=== PATIENT | female | born 1985 | race Caucasian/White ===

== ENCOUNTER 2025-07-21 12:20 | Outpatient (AMB) | payer OTHER, SELFPAY ==
--- NOTE | 2025-07-21 12:27 | A.OFFPC_ITS ---
Vital Signs 07/21/25 12:33 07/21/25 12:46 Height 5 ft 3 in Weight 133 lb 4 oz BMI 23.6 BP 159/92 H 136/88 Blood Pressure Location Lt brachial Lt brachial Position Sitting Sitting Respiration 16 Pulse 96 Pulse Source Pulse Oximeter Temp 99.5 F Temp Source Oral Pulse Oximetry (%) 96 Oxygen Delivery Method Room Air Intake Visit Reasons: betty from dr herring Intake Note: patient here for new patient visit, BETTY from Dr. Herring Guide Tour Required: No Is last menstrual period known: Yes Last menstrual period: 06/25/25 Post menopausal: No Patient : No Allergies No Known Allergies Allergy (Verified 07/21/25 12:39) Medication List - Last Reconciled 07/21/25 by Quentin Romo CNP No Known Home Meds Tobacco use date assessed: 07/21/25 Dental Screening Dental Screen Date: 07/21/25 Did you have a dental visit in the last 12 months?: No Did you have a dental problem in the last 6 months where you did not have access to dental care?: No Was dental information given to patient?: Yes HPI HPI Comments History of Present Illness Details 40-year-old female presents to [facility] care. She is not on prescription medication. Prior PCP? - [facility] Last office visit/CPE/labs - 5 years Acute issue(s) - Reports intermittent productive cough with white phlegm for the past 2 weeks. Denies difficulty breathing, chest discomfort, fever, chills, body aches. She takes Claritin D with improvement, however, the medication makes makes her tired. Past Medical History - HTN, cerebellar tumor, myopia, allergi es Surgical History - None Family History - Mom: HTN - MGM: HTN - MGF: Cardiovascular disease Social History - Nonsmoker. History of vaping, quit 1.5 months ago. Drinks 2-3 shots of vodka twice weekly. Denies recreational drug use - She generally eats healthy but likes s alty and processed foods. Walks regularly. Generally sleep well but sometimes have trouble falling asleep, denies snoring Health maintenance - Last eye exam was in 01/2024 at [facility] . Referred to Ophthalmology for routine eye exam - Last dental visit was over a year ago; encouraged to schedule an appointment with his dentist for routine dental care - Last tetanus vaccine was more than 10 years ago; received Tdap vaccine today - Has not been vaccinated for the flu ; plans on getting the vaccine next month - Last pap smear test was a year ago wit [facility]: Normal. Record not currently available - She has never had a mammogram. Mammogr am ordered Specialists - None [facility] Medical History (Updated 07/21/25 @ 13:11 by Quentin Romo CNP) High blood pressure Cerebellar tumor Family History (Updated 07/21/25 @ 12:41 by Elvi Sullivan MA) Mother High blood pressure Maternal Grandmother High blood pressure Maternal Grandfather Cardiovascular disease Social History (Updated 07/21/25 @ 12:33 by Elvi Sullivan MA) Housing: House Patient Tobacco Use Status: Never used Tobacco e-Cigarette/Vaping Use: Never Used Second Hand Smoke Exposure: No service: No Current occupational status: employed Current occupation: apraisal section 8 property manager Current occupational exposures/hazards: No Cognitive needs: No Hearing needs: No Vision needs: Yes Female Reproductive History Menstrual Date of last menstrual period: 06/25/25 Questionnaire PHQ-9 Over the last 2 weeks, how often have you been bothered by any of the following problems? 1. Little interest or pleasure in doing things: not at all 2. Feeling down, depressed, or hopeless: not at all 3. Trouble falling or staying asleep, or sleeping too much: not at all 4. Feeling tired or having little energy: several days 5. Poor appetite or overeating: not at all 6. Feeling bad about yourself - or that you are a failure or have let yourself or your family down: not at all 7. Trouble concentrating on things, such as reading the newspaper or watching television: not at all 8. Moving or speaking so slowly that other people could have noticed. Or the opposite - being so fidgety or restless that you have been moving around a lot more than usual: not at all 9. Thoughts that you would be better off or of hurting yourself in some way: not at all Total score: 1 Depression Screening Interpretation: Negative Depression Screening Done: Yes 29611 - PHQ-9 Billing: Yes Source: Developed by Drs. Alin Ac, Brie Pompa, Nico Sheriff and colleagues, with an educational court from [employer]. Thrive Questionnaire Date Thrive assessed: 07/21/25 I am a: Patient What is your living situation today?: I have a steady place to live Within the past 12 months, did the food you bought not last and you didn't have the money to get more?: Never true Within the past 12 months, did you worry whether your food would run out before you got money to buy more?: Never true Do you have trouble paying for medicines?: No Do you have trouble getting transportation to medical appointments?: No Do you have trouble paying your heating and electricity bill?: No Do you have trouble taking care of your child, family member or friend?: No Do you have trouble with day-to-day activities such as bathing, preparing meals, shopping, managing finances, etc.?: No Are you currently unemployed and looking for a job?: No Are you interested in more education?: No Please select the resources that you would like help with: None Currently or been in a relationship where the following occur: No concerns reported THRIVE Score: 0 AUDIT C Alcohol Use Questionnaire (AUDIT-C) 1. How often do you have a drink containing alcohol?: 2-3 times a week 2. How many drinks containing alcohol do you have on a typical day when you are drinking?: 1 or 2 3. How often do you have six or more drinks on one occasion?: Monthly Total Score: 5 Score Reviewed/Action Taken: Yes ARSALAN-7 AMB Questionnaire ARSALAN-7 Date ARSALAN - 7 assessed: 07/21/25 Feeling nervous, anxious, or on edge: 0 = Not at all Not being able to stop or control worryin = Not at all Worrying too much about different things: 0 = Not at all Trouble relaxin = Not at all Being so restless that it is hard to sit still: 0 = Not at all Becoming easily annoyed or irritable: 0 = Not at all Feeling afraid as if something awful might happen: 0 = Not at all Total ARSALAN-7 score (0-4 normal; 5-9 mild; 10-14 moderate; 15-21 severe): 0 Source: Developed by Drs. Alin Ac, Brie Pompa, Nico Sheriff and colleagues, with an educational court from [employer]. ARSALAN-7 Assessment Billing ARSALAN-7 Assessment Tool: ARSALAN-7 Assessment 77305 Review of Systems Const Details: Denies chills, Denies fatigue, Denies fever(s), Denies headache(s) and Denies weakness HEENT Denies change in vision, Denies dizziness, Denies headache(s), Denies hearing loss, Denies nasal congestion, Denies sinus pain, Denies sinus pressure and Denies sore throat Card Denies chest pain, Denies lightheadedness, Denies dyspnea and Denies other (palpitations) Resp Reports cough, Denies dyspnea and Denies wheezing GI Denies abdominal pain, Denies melena, Denies hematochezia, Denies change in bowel habits, Denies dyspepsia and Denies nausea Denies hematuria and Denies dysuria Musc Denies abnormal gait, Denies myalgias, Denies arthralgias, Denies numbness and Denies tingling Skin/Breast Denies rash, Denies unusual bruising and Denies wounds Neuro Denies abnormal gait, Denies dizziness, Denies headache(s), Denies memory loss, Denies numbness, Denies Sensory deficit (Neuro), Denies tingling and Denies weakness Psych Denies anxiety, Denies depression and Denies memory loss Endo Denies cold intolerance, Denies fatigue, Denies heat intolerance, Denies polydipsia and Denies polyuria Haim/Lymph Denies easy bleeding and Denies easy bruising Aller/Immun Denies wheezing Physical exam (Primary Care) Vital Signs: Last Vital Signs Temp 99.5 F 07/21/25 12:33 Pulse 96 07/21/25 12:33 Resp 16 07/21/25 12:33 BP 136/88 07/21/25 12:46 Pulse Ox 96 07/21/25 12:33 Oxygen Delivery Method Room Air 07/21/25 12:33 BMI result Body Mass Index 23.6 Tobacco/Smoking Status: Tobacco use Status Tobacco use date assessed 07/21/25 07/21/25 12:39 Patient Tobacco Use Status Never used Tobacco 07/21/25 12:39 e-Cigarette/Vaping Use Never Used 07/21/25 12:39 PHQ-9: PHQ-9 Score PHQ-9: Total score 1 07/21/25 13:20 Depression Screening Interpretation: Negative Thrive Assessment: Date of Thrive Assessment Date Thrive assessed 07/21/25 07/21/25 12:29 Currently or been in a relationship where the following occur: No concerns reported Const Other: General: no acute distress, well developed, alert and awake Nutritional Appearance: well nourished Orientation/consciousness: patient oriented x3 [facility] Head: Yes normocephalic and Yes atraumatic Ears: hearing grossly normal bilaterally and TM's normal bilaterally General nose exam: Normal external nose present and Normal nares present Mouth: Normal oral and palatal mucosa present and moist mucous membranes Teeth and gingiva: dentition normal Throat: Yes oropharynx normal Eyes Pupils: Equal, round and reactive pupils present and Pupil accommodation reflex normal EOM: EOMs intact bilaterally Neck Neck: Yes normal visual inspection, Yes no lymphadenopathy and Yes trachea midline Thyroid: Thyroid normal Carotids: no bruits Lymphatic: no lymphadenopathy noted Chest Chest palpation & inspection: normal inspection of the chest Resp Effort & Inspection: normal respiratory effort Auscultation: clear to auscultation bilaterally Cardio Rate: regular rate Rhythm: regular rhythm Heart sounds: S1 normal heart sound present, S2 normal heart sound present, no gallops, no murmurs and no rubs Bruits: no abdominal aortic bruits and no carotid bruits GI Palpation (GI): No Abdominal aortic bruit present, Soft to palpation, nontender, No hepatosplenomegaly present and No Rebound tenderness present Auscultation: normal bowel sounds General: Yes no CVA tenderness Back/Spine/Pelvis Back: no CVA tenderness Cervical Spine: cervical ROM normal and No Cervical spine tenderness Thoracic/Lumbar Spine: thoraco-lumbar ROM normal, No pain with thoraco-lumbar ROM, No thoracic spinal tenderness and No lumbar spinal tenderness Skin General: warm and dry. Normal skin color. Normal skin turgor Lesions: no lesions Rashes: no rashes Trauma: no lacerations or abrasions Wounds: no wounds Nails: normal Neuro General: patient oriented x3, gait normal and CN's II-XI intact bilaterally Cranial nerves: Yes Equal, round and reactive pupils present Cognition (Neuro): normal cognition Gait exam (Neuro): Normal gait present Motor exam (neuro): 5/5 motor strength present throughout Sensory Exam: No Sensory deficit (Neuro) Deep tendon reflexes (DTR's): Right patellar reflex intensity grade: 2+ and Left patellar reflex intensity grade: 2+ Extrem General: Yes normal to inspection, No edema and No calf tenderness Psych Appearance: grossly normal Affect: normal affect Attitude: cooperative Thought process: Normal thought process present Immunizations Boostrix Tdap 2.5 Lf unit-8 mcg-5 Lf/0.5 mL intramuscular syringe Performing Provider: Quentin Romo CNP Performing Location: [facility] Administered by: Kyle Oewns RN on 07/21/25 13:20 Dose Route Admin Location Dispensed Lot Number Expiration Date [facility] Finisher Hot Strip 0.5 mL IM Left Deltoid 0.5 mL [id number] 09/10/27 [id number] [employer] Total Dispensed Waste 0.5 mL 0 % VIS Given Date VIS Provided VIS Publication Date 07/21/25 Single Vaccine 21 Eligibility Eligibility Date Funding Source Not [facility] Eligible 07/21/25 Private Coding Level of Care Code New Pt Level 3 (41000) New Pt Prev Care 18-39yr(69310 Diagnoses Normal physical examination, routine Z00.00 Myopia of both eyes H52.13 Allergies T78.40XA Laboratory tests ordered as part of a complete physical exam (CPE) Z00.00 Additional Codes ARSALAN-7 Assessment Billing - ARSALAN-7 Assessment Tool: ARSALAN-7 Assessment 34617 ([id number]) PHQ-9 - 56435 - PHQ-9 Billing: Yes ([id number]) Assessment & Plan Assessment & Plan (1) Normal physical examination, routine: Code(s): Z00.00 - Encounter for general adult medical examination without abnormal findings Category: Medical Plan: No significant functional limitations ordered. Healthy diet and routine exercise encouraged. Perform lab work and follow-up for telehealth visit for lab reviews in 2-4 weeks. Return sooner with symptoms or concerns. Verbalized understanding and agreed with the plan. (2) Myopia of both eyes: Code(s): H52.13 - Myopia, bilateral Category: Medical Plan: Last eye exam was in 01/2024 at [facility]. Referred to Ophthalmology for routine eye exam. (3) Allergies: Code(s): T78.40XA - Allergy, unspecified, initial encounter Category: Medical Plan: Reports intermittent productive cough with white phlegm for the past 2 weeks. Denies difficulty breathing, chest discomfort, fever, chills, body aches. She takes Claritin D with improvement, however, the medication makes makes her tired. Normal physical exam. Encouraged to trial Zyrtec daily. Albuterol inhaler as prescribed. Follow-up with worsening or new symptoms. Verbalized understanding and agreed with the plan. (4) Laboratory tests ordered as part of a complete physical exam (CPE): Code(s): Z. - Encounter for general adult medical examination without abnormal findings Category: Medical Plan: Fasting labs ordered as part of a complete physical exam. Advised to fast for at least 10 hours before getting labs drawn. May drink water Verbalized understanding and agreed with treatment plan. Orders: Orders Comprehensive [place]. Panel Fast 07/21/25 Z00. - Encounter for general adult medical examination without abnormal findings Microalbumin, Random (w Creat) 07/21/25 Z. - Encounter for general adult medical examination without abnormal findings Vitamin D 25-OH Total 07/21/25 Z. - Encounter for general adult medical examination without abnormal findings TDaP Immunization 07/21/25 Z23 - Encounter for immunization MM screening mammo BI 07/21/25 Z12.31 - Encounter for screening mammogram for malignant neoplasm of breast Complete Blood Count Auto Diff 07/21/25 Z. - Encounter for general adult medical examination without abnormal findings Lipid Panel 07/21/25 Z00. - Encounter for general adult medical examination without abnormal findings TSH reflex Free T4 07/21/25 Z. - Encounter for general adult medical examination without abnormal findings UA CC w/rflx Micro + Cult 07/21/25 Z00. - Encounter for general adult medical examination without abnormal findings Referrals Ophthalmology Referral H52.13 - Myopia, bilateral Medications: New albuterol sulfate 90 mcg/actuation (Ventolin HFA) 2 puffs inhalation Q4-6H PRN 8.5 grams 3RF shortness of breath or wheezing
[2025-07-21 12:33] VITALS: BP 159/92; PULSE 96; RESP 16; TEMP 37.5; O2SAT 96; BMI 23.6
[2025-07-21 12:46] VITALS: BP 136/88
== END 2025-07-21 13:17 | disposition home or self-care (01) ==
LOC: HO.HMCFM 12:21
PROVIDERS: PCP Nurse Practitioner Family; Visit Provider Nurse Practitioner Family
DX: Z23 Encounter for immunization (principal)

== ENCOUNTER → 2025-07-21 12:20 | Outpatient (BNVA) | payer OTHER, SELFPAY | PROVIDERS: PCP Nurse Practitioner Family; Visit Provider Nurse Practitioner Family | DX: Z00.00 Encounter for general adult medical examination without abnormal findings (principal); H52.13 Myopia, bilateral; Z23 Encounter for immunization; Z91.09 Other allergy status, other than to drugs and biological substances | CPT/HCPCS: 90471; 90715; 96127; 99202; 99386 ==

== ENCOUNTER 2025-08-04 09:50 | Outpatient (REF) | payer OTHER, SELFPAY ==
[2025-08-04 13:17] LABS: MANUAL DIFF FLAG NO
[2025-08-04 13:30] LABS: Hematocrit 34.0 % (37.0-47.0); Hemoglobin 11.0 g/dl (12.0-16.0); Imm Gran Abs Auto 0.01 X10*3/uL (0.00-0.03); Imm Gran Pct Auto 0.2 % (0.0-0.4); Lymphocytes Absolute Auto 1.9 X10*3/uL (1.2-4.9); Mean Corpuscular HGB Conc 32.4 g/dl (31.0-35.0); Mean Corpuscular Hemoglobin 27.4 pg (27.0-33.0); Mean Corpuscular Volume 84.6 fL (80.0-98.0); NRBC Abs Auto 0.000 X10*3/uL (0.0-0.012); NRBC Pct Auto 0.0 /100WBC (0.0-0.2); Platelet Count 364 X10*3/uL (160-400); Red Blood Count 4.02 X10*6/uL (4.20-5.50); White Blood Count 6.0 X10*3/uL (4.8-10.8)
[2025-08-04 14:00] LABS: Appearance Urine Clear; Glucose Urine UA Negative (Negative); PH 7.0 (5.0-9.0); Specific Gravity - Urine 1.010 (1.005-1.025)
[2025-08-04 14:06] LABS: Alanine Aminotransferase 22 U/L (0-31); Albumin Level 4.7 g/dL (3.5-5.0); Alkaline Phosphatase 48 U/L (39-117); Anion Gap 11 (12-20); Aspartate Amino Transferase 21 U/L (5-31); Blood Urea Nitrogen 14 mg/dL (9-16); Calcium 9.6 mg/dL (8.4-10.2); Carbon Dioxide 25 mmol/L (22-29); Chloride 104 mmol/L (96-108); Cholesterol 215 mg/dL (<200); Estimated Glomerular Filt Rate > 60; HDL Cholesterol 80 mg/dL (>40); Potassium 4.3 mmol/L (3.3-5.1); Sodium 136 mmol/L (135-145); Total Protein 7.5 g/dL (6.5-8.0); Triglycerides 62 mg/dL (<150)
== END 2025-08-04 09:51 | disposition home or self-care (01) ==
LOC: HO.HMGCLDS 09:50
PROVIDERS: PCP Nurse Practitioner Family; Visit Provider Nurse Practitioner Family
DX: Z00.00 Encounter for general adult medical examination without abnormal findings (principal)
CPT/HCPCS: 36415; 80053; 80061; 81003; 82043; 82306; 82570; 84443; 85025

== ENCOUNTER 2025-08-05 10:28 | Outpatient (AMB) | payer OTHER, SELFPAY ==
--- NOTE | 2025-08-05 10:20 | MHC.PC.OV ---
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 Is last menstrual period known: Yes Last menstrual period: 08/01/25 Post menopausal: No Patient : No Allergies No Known Allergies Allergy (Verified 08/05/25 10:27) Tobacco use date assessed: 08/05/25 Dental Screening Dental Screen Date: 08/05/25 Did you have a dental visit in the last 12 months?: No Did you have a dental problem in the last 6 months where you did not have access to dental care?: No Was dental information given to patient?: Patient has dentist HPI HPI Comments History of Present Illness Details 40-year-old female presents for a telehealth visit for review of recent lab results. She offers no complaints and denies acute symptoms at this time. [facility] Medical History (Updated 08/05/25 @ 10:23 by Quentin Romo CNP) High blood pressure Cerebellar tumor Family History (Updated 07/21/25 @ 12:41 by Elvi Sullivan MA) Mother High blood pressure Maternal Grandmother High blood pressure Maternal Grandfather Cardiovascular disease Social History (Updated 07/21/25 @ 12:33 by Elvi Sullivan MA) Housing: House Patient Tobacco Use Status: Never used Tobacco e-Cigarette/Vaping Use: Never Used Second Hand Smoke Exposure: No service: No Current occupational status: employed Current occupation: apraisal fund accounting manager Current occupational exposures/hazards: No Cognitive needs: No Hearing needs: No Vision needs: Yes Female Reproductive History Menstrual Date of last menstrual period: 08/01/25 Questionnaire Thrive Questionnaire Date Thrive assessed: 07/21/25 ARSALAN-7 AMB Questionnaire ARSALAN-7 Date ARSALAN - 7 assessed: 07/21/25 Source: Developed by Drs. Alin Ac, Brie Pompa, Nico Sheriff and colleagues, with an educational court from [employer]. Review of Systems Const Details: Denies chills, Denies fatigue, Denies fever(s), Denies headache(s) and Denies weakness Cardiac Denies chest pain, Denies claudication, Denies leg edema, Denies lightheadedness, Denies palpitations, Denies dyspnea, Denies dyspnea on exertion, Denies orthopnea and Denies other (Loss of consciousness) Resp Denies cough, Denies excessive phlegm production, Denies dyspnea, Denies dyspnea on exertion, Denies snoring and Denies wheezing Physical exam (Primary Care) Tobacco/Smoking Status: Tobacco use Status Tobacco use date assessed 07/21/25 08/05/25 10:26 Patient Tobacco Use Status Never used Tobacco 08/05/25 10:26 e-Cigarette/Vaping Use Never Used 08/05/25 10:26 Thrive Assessment: Date of Thrive Assessment Date Thrive assessed 07/21/25 08/05/25 10:26 Const Other: Patient is alert and oriented x3 Telehealth Telehealth Telehealth Platform: Telephone Location of provider rendering services: practice address Location of patient: address on file Patient Identification confirmed using: Name, : Yes Telehealth method: voice only Patient verbally consented to treatment: Yes Patient verbally consented to billing insurance company: Yes Patient informed of any privacy concerns related to visit: Yes Coding Level of Care Code Tele Est Pt Level 3 (90483) Diagnoses Hypercholesterolemia E78.00 Normocytic anemia D64.9 Time Spent (min) 10 Assessment & Plan Assessment & Plan (1) Hypercholesterolemia: Code(s): E78.00 - Pure hypercholesterolemia, unspecified Category: Medical Plan: Recent total cholesterol and LDL levels were slightly elevated, 215 and 123 respectively; triglycerides and HDL levels are normal. Advised to limit foods high in saturated fat and avoid foods high in trans fat. Routine exercise encouraged. Fast for 10-12 hours, may drink water, perform lipid panel blood work 2-3 days before next visit. Follow-up for a telehealth visit in 2 weeks. Return sooner with symptoms or concerns. Verbalized understanding and agreed with the plan. (2) Normocytic anemia: Code(s): D64.9 - Anemia, unspecified Category: Medical Plan: Recent RBC and H&H are slightly low, 4.02 and 11.0/34.0 respectively; MCV is normal. Will check iron profile, ferritin, vitamin B12, and folate levels. Will review results and make changes as needed. Verbalized understanding and agreed with the plan. Orders: Orders IRON PROFILE Today D64.9 - Anemia, unspecified Lipid Panel 2 Months E78.00 - Pure hypercholesterolemia, unspecified Ferritin Today D64.9 - Anemia, unspecified Vitamin B12 and Folate Today D64.9 - Anemia, unspecified
== END 2025-08-05 10:44 | disposition home or self-care (01) ==
LOC: HO.HMCFM 10:28
PROVIDERS: PCP Nurse Practitioner Family; Visit Provider Nurse Practitioner Family
DX: E78.00 Pure hypercholesterolemia, unspecified (principal); D64.9 Anemia, unspecified

== ENCOUNTER 2025-10-09 10:51 | Outpatient (REF) | payer OTHER, SELFPAY ==
[2025-10-09 13:06] LABS: Hematocrit 33.1 % (37.0-47.0); Hemoglobin 10.4 g/dl (12.0-16.0); Mean Corpuscular HGB Conc 31.4 g/dl (31.0-35.0); Mean Corpuscular Hemoglobin 26.3 pg (27.0-33.0); Mean Corpuscular Volume 83.8 fL (80.0-98.0); NRBC Abs Auto 0.000 X10*3/uL (0.0-0.012); NRBC Pct Auto 0.0 /100WBC (0.0-0.2); Platelet Count 325 X10*3/uL (160-400); Red Blood Count 3.95 X10*6/uL (4.20-5.50); White Blood Count 7.5 X10*3/uL (4.8-10.8)
[2025-10-09 13:21] LABS: Cholesterol 194 mg/dL (<200); HDL Cholesterol 74 mg/dL (>40); Iron 44 mcg/dL (30-160); Percent Iron Saturation 13 % (15-50); Total Iron Binding Capacity 329 mcg/dL (228-428); Triglycerides 67 mg/dL (<150); Unsaturated Iron Binding 285 ug/dL
[2025-10-09 13:39] LABS: Ferritin 7 ng/mL (10-250)
[2025-10-09 14:00] LABS: Folate 12.8 ng/mL (> or = 4.0); Vitamin B12 1116 pg/mL (200-900)
== END 2025-10-09 10:52 | disposition home or self-care (01) ==
LOC: HO.HMGCLDS 10:51
PROVIDERS: PCP Nurse Practitioner Family; Visit Provider Nurse Practitioner Family
DX: D64.9 Anemia, unspecified (principal); E78.00 Pure hypercholesterolemia, unspecified
CPT/HCPCS: 36415; 80061; 82607; 82728; 82746; 83540; 85027

== ENCOUNTER 2025-10-10 13:41 | Outpatient (AMB) | payer OTHER, SELFPAY ==
--- NOTE | 2025-10-10 13:35 | A.OFFPC_ITS ---
Intake Visit Reasons: Tele 2 mos hypercholesterolemia Pan Cleaner Required: No Is last menstrual period known: Yes Last menstrual period: 09/15/25 Post menopausal: No Patient : No Allergies No Known Allergies Allergy (Verified 10/10/25 13:36) Tobacco use date assessed: 10/10/25 Dental Screening Dental Screen Date: 10/10/25 Did you have a dental visit in the last 12 months?: Yes Did you have a dental problem in the last 6 months where you did not have access to dental care?: No Was dental information given to patient?: Patient has dentist HPI HPI Comments History of Present Illness Details 40-year-old female presents for a [facility] visit for hypercholesterolemia and normocystic anemia. She notes that she has been making healthy lifestyle choices. She offers no complaints and denies acute symptoms at this time. [facility] Medical History (Updated 08/05/25 @ 10:23 by Quentin Romo CNP) High blood pressure Cerebellar tumor Family History (Updated 07/21/25 @ 12:41 by CLAYTON Moran) Mother High blood pressure Maternal Grandmother High blood pressure Maternal Grandfather Cardiovascular disease Social History (Updated 07/21/25 @ 12:33 by CLAYTON Moran) Housing: House Patient Tobacco Use Status: Never used Tobacco e-Cigarette/Vaping Use: Never Used Second Hand Smoke Exposure: No Patient : No service: No Current occupational status: employed Current occupation: apraisal manager dish Current occupational exposures/hazards: No Cognitive needs: No Hearing needs: No Vision needs: Yes Female Reproductive History Menstrual Date of last menstrual period: 09/15/25 Questionnaire Thrive Questionnaire Date Thrive assessed: 07/21/25 ARSALAN-7 AMB Questionnaire ARSALAN-7 Date ARSALAN - 7 assessed: 07/21/25 Source: Developed by Drs. Alin Ac, Brie Pompa, Nico Sheriff and colleagues, with an educational court from [employer]. Review of Systems Const Details: Denies chills, Denies fatigue, Denies fever(s), Denies headache(s) and Denies weakness Cardiac Denies chest pain, Denies claudication, Denies leg edema, Denies lightheadedness, Denies palpitations, Denies dyspnea, Denies dyspnea on exertion, Denies orthopnea and Denies other (Loss of consciousness) Resp Denies cough, Denies excessive phlegm production, Denies dyspnea, Denies dyspnea on exertion, Denies snoring and Denies wheezing Physical exam (Primary Care) Tobacco/Smoking Status: Tobacco use Status Tobacco use date assessed 10/10/25 10/10/25 13:36 Patient Tobacco Use Status Never used Tobacco 10/10/25 13:36 e-Cigarette/Vaping Use Never Used 10/10/25 13:36 Thrive Assessment: Date of Thrive Assessment Date Thrive assessed 07/14/25 10/10/25 13:41 Const Other: Patient is alert and oriented x4 Telehealth Telehealth Telehealth Platform: Telephone Location of provider rendering services: practice address Location of patient: address on file Patient Identification confirmed using: Name, : Yes Telehealth method: voice only Patient verbally consented to treatment: Yes Patient verbally consented to billing insurance company: Yes Patient informed of any privacy concerns related to visit: Yes Coding Level of Care Code Tele Est Pt Level 3 (24411) Diagnoses Hypercholesterolemia E78.00 Normocytic anemia D64.9 Time Spent (min) 10 Assessment & Plan Assessment & Plan (1) Hypercholesterolemia: Code(s): E78.00 - Pure hypercholesterolemia, unspecified Category: Medical Plan: Recent LDL level is slightly elevated, 105; triglycerides, total cholesterol, and HDL levels are normal. Advised to limit foods high in saturated fat and avoid foods high in trans fat. Routine exercise encouraged. Will monitor lipid panel level annually or if clinically indicated. Follow-up in 2-3 months with a new PCP within the practice for transfer of care. Return sooner with symptoms or concerns. Verbalized understanding and agreed with the plan. (2) Normocytic anemia: Code(s): D64.9 - Anemia, unspecified Category: Medical Plan: Recent RBC and H&H levels are slightly low, 3.95 and 10.4/33.1 respectively. Ferritin level is slightly low, 7. Iron, vitamin B12, and folate levels are normal. Declines referral to Hematology/Oncology at this time for further workup. Will follow-up as needed. Verbalized understanding and agreed with the plan.
== END 2025-10-10 15:07 | disposition home or self-care (01) ==
LOC: HO.HMCFM 13:42
PROVIDERS: PCP Nurse Practitioner Family; Visit Provider Nurse Practitioner Family
DX: E78.00 Pure hypercholesterolemia, unspecified (principal); D64.9 Anemia, unspecified